=== PATIENT | female | born 1990 | race Caucasian/White ===

== ENCOUNTER 2017-03-28 21:32 | Inpatient (IN) | payer OTHER ==
--- NOTE | ~2017-03-28 | PN ---
Unit #: [id number] #: [id number] Patient: GRETA DUNCAN [id number] [facility] [address] [place] [address] [id number] I MR#: [id number] NAME: GRETA DUNCAN ROOM: [facility] Age: 26 Sex: F Admission Date: 03/29/2017 : 1990 Attending Physician: Jw Prince M.D. Admitting Physician: Jw Prince M.D. Primary Care Physician: Primary Care Physician Jeane MURRAY NOTES DATE 03/30/2017 DISCUSSION The patient's prominent characterologic pathology is very much in evidence today as she accuses this physician of "only having little meetings with her." I have explained to the patient that in addition to our interview, I have reviewed her chart, and I have requested old records, and I have discussed the case with nursing staff and long term care social worker staff. 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 I have also encouraged the patient to increase her participation within the therapeutic milieu, and I have redirected her expectations of inpatient care during today's interview. Dictated by... Jw Prince M.D. CB/katie TD: 03/30/2017 13:00 JOB #: [id number] ROSIE MURRAY NOTES Page 1 of 1 X Jw Prince MD PROGRESS NOTE
--- NOTE | ~2017-03-28 | DS ---
Unit #: [id number] #: [id number] Patient: GRETA DUNCAN [id number] [facility] [address] [place] [address] [id number] I MR#: [id number] NAME: GRETA DUNCAN ROOM: [facility] Age: 26 Sex: F Admission Date: 03/29/2017 : 1990 Discharge Date: 04/01/2017 Attending Physician: Jw Prince M.D. Primary Care Physician: Primary Care Physician No DISCHARGE SUMMARY REASON FOR ADMISSION The patient is a 26-year-old white female, admitted to the [facility] unit with positive suicidal ideation. HOSPITAL COURSE The patient was admitted to the [facility] unit and placed on suicide precautions. She reported a history of poor response to antidepressant medications and given her rather profound borderline pathology which as her hospitalization progressed became more and more evident. She was begun on Seroquel 50 mg b.i.d. and she was also placed on a detoxification protocol given her history of sedative hypnotic abuse. The patient remained in her room throughout most of her hospitalization, refusing to take participate in groups and accusing this physician of "not talking to me." It was explained to the patient that in addition to medication management provided by this physician that she would need to attend groups in order to further to be any improvement in her condition. On 03/31/2017, the patient demanded discharge from the hospital after having wrapped a sheet around her neck. One-to-one at all time precautions were ordered. The patient was locked out of her room. During the ensuing period, she required multiple p.r.n.'s and her behavior was consistent with profound borderline personality disorder. On 04/01/2017, the patient had a family therapy session with Ms. Vale and her sister. At that time, the patient denied suicidal ideation and the sister insisted in taking her from this hospital. It was felt by this physician that the patient clearly meets maximum benefit from inpatient psychiatric hospitalization. This facility given her refusal to comply with this physician's simple request that she attend on unit therapeutic activities and given her ongoing med seeking behavior as well as projective identification. Accordingly with the patient denying suicidal ideation, discharge was ordered on 04/01/2017. FINAL DIAGNOSES Dysthymic disorder, sedative hypnotic use disorder, borderline personality disorder, obesity, "cyclical vomiting syndrome." DISPOSITION ON DISCHARGE Given the circumstances of discharge, the patient is discharged on no psychotropic or other medications. We will recommend the patient followup through the auspices of community mental health resources. PROGNOSIS Her prognosis is at this point considered fair. Unit #: [id number] #: [id number] Patient: GRETA DUNCAN Dictated by... Jw Prince M.D. CB/mynor TD: 04/02/2017 02:31 JOB #: [id number] DISCHARGE SUMMARY Page 1 of 1 X Jw Prince MD X DISCHARGE SUMMARY
--- NOTE | ~2017-03-28 | CR142 ---
[facility] A Service of [facility] RADIOLOGY TEXT RESULTS PATIENT: GRETA DUNCAN LOCATION: P2L P265-1 : [birth year] UNIT #: [id number] AGE: [address]: Jw Prince MD SEX: F ORDER DR: [id number] [place] [address] [facility]. [place], [place] [address] [id number] I MR#: [id number] Acc #: [id number] NAME: GRETA DUNCAN : 1990 SEX: F STUDY DATE/TIME: 03/31/2017 12:48 UNIT: P2L ROOM: [facility] STUDY DESCRIPTION: CR Hand Min 3 Views Rt Attending Physician: Jw Prince M.D. Ordering Physician: Jw Prince M.D. Primary Care Physician: Primary Care Physician No MEDICAL IMAGING REPORT This report is preliminary unless electronic signature is present EXAM Right hand INDICATIONS Patient hit right hand into wall yesterday, with pain in fifth metacarpal region. FINDINGS AP, lateral, and oblique projections of the hand show good mineralization with normal carpal, metacarpal, and phalangeal anatomy without indication of fracture, dislocation, or soft tissue radiopaque foreign body. IMPRESSION Normal hand. Dictated by... Joshua Newton M.D. THIS IS AN ELECTRONICALLY VERIFIED REPORT Joshua Newton M.D. at 04/01/2017 7:27 AM DUGLAS/perla TD: 03/31/2017 22:19 JOB #: [id number] MEDICAL IMAGING REPORT Page 1 of 1 COPY
--- NOTE | ~2017-03-28 | PN ---
Unit #: [id number] #: [id number] Patient: GRETA DUNCAN [id number] [facility] [address] [place] [address] [id number] I MR#: [id number] NAME: GRETA DUNCAN ROOM: [facility] Age: 26 Sex: F Admission Date: 03/29/2017 : 1990 Attending Physician: Jw Prince M.D. Admitting Physician: Jw Prince M.D. Primary Care Physician: Primary Care Physician Jeane VELEZ PROGRESS NOTES DATE 03/31/2017 DISCUSSION The patient remains seclusive to room and continues to refuse group participation. I have gently but firmly confronted the patient today regarding her need to increase her participation within the therapeutic milieu and will push the patient to groups if she refuses to participate room lock out will be ordered. She continues to complain of severe suicidal ideation and depressed mood. She request "something for nightmares" and Minipress 1 mg at h.s. will be added. Dictated by... Jw Prince M.D. CB/mira TD: 04/01/2017 00:23 JOB #: [id number] ROSIE PROGRESS NOTES Page 1 of 1 X Jw Prince MD X PROGRESS NOTE
--- NOTE | ~2017-03-28 | HP ---
Unit #: [id number] #: [id number] Patient: GRETA DUNCAN [id number] [facility] [address] [place] [address] [id number] I MR#: [id number] NAME: GRETA DUNCAN ROOM: 61 Age: 26 Sex: F Admission Date: 03/29/2017 : 1990 Attending Physician: Jw Prince M.D. Admitting Physician: Jw Prince M.D. Primary Care Physician: Primary Care Physician No HISTORY AND PHYSICAL HISTORY OF PRESENT ILLNESS Greta is a 26 year old admitted to [address] [place] [address] with depression and verbalizing wanting to hurt herself. PAST MEDICAL HISTORY History of purging. PAST SURGICAL HISTORY Nothing reported. ALLERGIES No known drug allergies. SOCIAL HISTORY Smokes 1 pack per day. Drinks alcohol on occasion. Admits to smoking marijuana and abusing benzodiazepines. FAMILY HISTORY Medically noncontributory. REVIEW OF SYSTEMS CONSTITUTIONAL: No fever or chills. HEENT: Denies any sore throat, ear pain or runny nose. CARDIOVASCULAR: Denies chest pain, irregular heart rhythm or palpitations. CHEST: Denies shortness of breath or cough. No hemoptysis. GASTROINTESTINAL: Denies nausea, vomiting, diarrhea or chronic constipation. ENDOCRINE: Denies history of increased thirst or urination. No recent significant weight loss or gain. GENITOURINARY: Denies dysuria, frequency, or hematuria. SKIN: Denies any rashes. HEMATOLOGIC: Denies history of increased bleeding or bruising. MUSCULOSKELETAL: Denies any hot, swollen joints. No generalized muscle pain. NEUROLOGIC: Denies problems with vision or speech. No frequent, severe headaches. No numbness, tingling or weakness in any extremities. Denies loss of bladder or bowel control. CURRENT MEDICATIONS Detox protocol. PHYSICAL EXAMINATION GENERAL: Alert, obese, no apparent distress. Unit #: [id number] #: [id number] Patient: GRETA DUNCAN VITAL SIGNS: Blood pressure 110/62, heart rate 80, respirations 16, temperature 98.6. WEIGHT: 199. HEIGHT: 5 feet 3 inches. SKIN: Warm and dry without rash or lesion. HEENT: Normocephalic. TMs not viewed. Oral and nasal passages clear. Conjunctivae clear. PERRLA. EOMs intact. NECK: Supple without lymphadenopathy or thyromegaly. HEART: Regular rate and rhythm without murmur. LUNGS: Clear. ABDOMEN: Soft, nontender. : Not done. EXTREMITIES: No evidence of cyanosis, clubbing or edema. Moves all without focal deficit. NEUROLOGICAL: Grossly within normal limits. Cranial Nerves: II: Visual pinon are intact. III, IV AND : Extraocular movements are intact. Pupils are equal, round and reactive to light. V: Facial sensation is grossly normal. VII: Facial movements and expression are normal. VIII: Auditory acuity grossly intact. IX, X: Uvula is midline. Phonation is normal. XI: Patient shrugs shoulders and turns head normally. XII: Tongue protrudes in the midline. Sensory and Motor Function: Sensory and motor sensation is grossly normal. Motor: moves all extremities well. Coordination: Gait is normal. Deep Tendon Reflexes: Intact. IMPRESSION Psychiatric admission. RECOMMENDATIONS PSYCHIATRIC: Per psychiatrist. MEDICAL: See no contraindications to participate in facility's activities. MEDICAL PROGNOSIS Good. MEDICAL CONDITION Stable. Dictated by... Geni BoyerAGiovany-Yanira. for Sade Henderson/sarahi TD: 03/29/2017 20:15 JOB #: [id number] Unit #: [id number] #: [id number] Patient: GRETA DUNCAN HISTORY AND PHYSICAL Page 1 of 1 X Nely Olivo HISTORY AND PHYSICAL
--- NOTE | ~2017-03-28 | PA ---
Unit #: [id number] #: [id number] Patient: GRETA DUNCAN [id number] [facility] [address] [place] [address] [id number] I MR#: [id number] NAME: GRETA DUNCAN ROOM: [facility] Age: 26 Sex: F Admission Date: 03/29/2017 : 1990 Date of Assessment: 03/29/2017 Attending Physician: Jw Prince M.D. Admitting Physician: Jw Prince M.D. Primary Care Physician: Primary Care Physician No PSYCHIATRIC ASSESSMENT IDENTIFYING INFORMATION The patient is a 26-year-old single white female admitted to the [address] [place] [address] Unit with suicidal ideation. CHIEF COMPLAINT None given. INFORMANT(S) Patient, reliability good. HISTORY OF PRESENT ILLNESS The patient is a 26-year-old white female admitted following suicidal ideation with plan to strangle herself with piece of rope. The patient also reports history of self-mutilatory behavior. She has a history of one previous hospitalization at the [facility], and states that while there she was started on paroxetine but reports that she did not do well with this medication. The patient reports that last week a former girlfriend had committed suicide and that this had been the major precipitant to her current depressive symptoms. The patient reports that she has let her 3-year-old son stay with his father for the past 1 month secondary to her increased depression. The patient admits to abuse of cannabis and has been abusing alprazolam also. When seen today, the patient continues to endorse positive suicidal ideation. She denies homicidal ideation. PAST PSYCHIATRIC HISTORY As above. PAST MEDICAL HISTORY Significant for a history of cyclic vomiting disorder. MEDICATIONS At the time of admission, the patient's medications included Compazine, Reglan, Zofran, and Phenergan. ALLERGIES None reported. FAMILY HISTORY Noncontributory. SOCIAL HISTORY The patient lives with her boyfriend. She had previously described Unit #: [id number] #: [id number] Patient: GRETA DUNCAN herself as a lesbian. She abuses Xanax and cannabis as noted previously and completed "some college." MENTAL STATUS EXAMINATION Examination at this time reveals the patient to be an obese white female appearing her stated age. She is in no apparent physical distress at the time of the examination. She is awake, alert, and oriented in all spheres. Her mood is dysphoric, her affect blunted. Speech is generally well-coherent. There are no gross deficits in memory or cognition noted. Intelligence is judged to be in the average range based on fund of knowledge. The patient is cooperative throughout the interview. She is currently endorsing positive suicidal ideation. She denies homicidal ideation. She denies any psychotic symptoms. Her judgment and insight appear to be somewhat impaired. ASSETS AND LIABILITIES The patient's assets: Motivation for change. Liabilities: Lack of resources. DIAGNOSTIC IMPRESSION 1. Dysthymic disorder. 2. Borderline personality disorder. TREATMENT PLAN The patient remains hospitalized for safety and stabilization. Trial of Seroquel will be initiated in hopes of attaining some mood stabilization, and given the patient's extensive substance abuse history she has been placed on a [facility] detox protocol. Transfer to a [facility] treatment unit will also be ordered. ESTIMATED LENGTH OF STAY 5 to 7 days. Dictated by... Jw Prince M.D. ANNETTE/katie TD: 03/29/2017 13:59 JOB #: [id number] PSYCHIATRIC ASSESSMENT Page 1 of 1 X Jw Prince MD X PSYCHIATRIC ASSESSMENT
[2017-03-29 09:52] LABS: URINE APPEARANCE TURBID; URINE BILIRUBIN NEG (NEG); URINE BLOOD 2+ (NEG); URINE COLOR YELLOW; URINE GLUCOSE NEG (NEG); URINE KETONE NEG (NEG); URINE LEUKOCYTE ESTERASE NEG (NEG); URINE NITRATE NEG (NEG); URINE PROTEIN NEG (NEG); URINE SPECIFIC GRAVITY 1.031 (1.003-1.035)
[2017-03-29 09:56] LABS: URINE BACTERIA AUWI 3+ (NEGATIVE); URINE SQUAMOUS EPITHELIAL CELL MANY /[HPF]
[2017-03-29 10:08] LABS: U HYALINE CASTS AUWI 0-2 /[LPF]
[2017-03-29 10:09] LABS: URINE CRYSTALS CALCIUM OXALATE /[HPF]; URINE MUCUS PRESENT
[2017-03-29 11:17] LABS: AMPHETAMINE NEG (NEG); BARBITURATES NEG (NEG); BENZODIAZEPINES POS (NEG); COCAINE NEG (NEG); MARIJUANA POS (NEG); OPIATES NEG (NEG); TRICYCLIC ANTIDEPRESSANTS POS (NEG); U METHADONE NEG (NEG)
[2017-04-01 09:40] LABS: BASOPHIL# 0.1 X10e3 (0-0.3); BASOPHIL% 0.6 % (0-2.5); EOSINOPHIL# 0.4 X10e3 (0-0.7); EOSINOPHIL% 3.9 % (0.0-7.0); HEMATOCRIT 46.2 % (35.0-45.0); HEMOGLOBIN 15.2 gm/dL (12.0-16.0); LYMPHOCYTE# 2.9 X10e3 (1.0-3.5); LYMPHOCYTE% 29.4 % (17.0-45.0); MEAN CELL VOLUME 93.3 FL (83-96); MEAN CORPUSCULAR HEMOGLOBIN 30.7 PG (28-34); MEAN PLATELET VOLUME 8.8 FL (6.5-11.5); MONOCYTE# 0.7 X10e3 (0-1.0); NEUTROPHIL# 5.7 X10e3 (1.5-7.1); NEUTROPHIL% 59.1 % (40-75); PLATELET COUNT 341 X10e3 (140-420); RED BLOOD COUNT 4.96 X10e (3.90-5.30); RED CELL DISTRIBUTION WIDTH 13.2 % (11.0-15.5); WHITE BLOOD COUNT 9.7 X10e3 (4.0-10.5)
[2017-04-01 09:43] LABS: DIFF IND NO
[2017-04-01 10:30] LABS: ALBUMIN SERUM 4.3 g/dL (3.5-5.0); BILIRUBIN,TOTAL 1.6 mg/dL (0.2-2.0); BUN/CREATININE RATIO 28.33; CALCIUM SERUM 9.9 mg/dL (8.4-10.2); CREATININE SERUM 0.6 mg/dL (0.6-1.4); GLOM FILT RATE Estimated 126.7 mL/min (>60); POTASSIUM 4.2 mmol/L (3.5-5.1); PROTEIN TOTAL SERUM 7.2 g/dL (6.0-8.3)
== END 2017-04-01 14:00 | disposition home or self-care (01) | DRG 881 ==
LOC: P2L 03-29 00:08
PROVIDERS: Specialist
PROC: HZ2ZZZZ Detoxification Services for Substance Abuse Treatment (ICD-10-PCS; principal; 2017-03-29)
DX: F34.1 Dysthymic disorder (principal); F13.20 Sedative, hypnotic or anxiolytic dependence, uncomplicated; F60.3 Borderline personality disorder; F17.210 Nicotine dependence, cigarettes, uncomplicated; E66.9 Obesity, unspecified
CPT/HCPCS: 73130; 80053; 80307; 81003; 84703; 85025; 86592; J3230